=== PATIENT | female | born 1945 | race Caucasian/White ===

== ENCOUNTER 2021-05-09 11:04 | Emergency (ER) | payer MEDICARE, OTHER ==
[2021-05-09 11:53] LABS: BASOPHIL 0.8 % (0-2); EOSINOPHIL 1.8 % (0-7); HCT 41.2 % (37.0-47.0); HGB 13.6 g/dl (12.5-16.0); LYMPHOCYTE 27.3 % (15-48); MCH 31.3 pg (25.0-31.0); MCV 94.9 fL (78.0-100.0); MONOCYTE 7.3 % (0-12); MPV 9.6 fL (6.0-9.5); NEUTROPHIL 62.6 % (41-80); NRBC 0; PLT 204 K/uL (150-400); RBC 4.34 M/uL (4.20-5.40); RDW 12.7 % (11.5-14.0); WBC 6.2 K/uL (4.0-10.5)
[2021-05-09 11:54] LABS: INR 1.05 (0.9-1.2); PROTHROMBIN TIME 13.1 SECONDS (11.8-13.4)
[2021-05-09 11:55] LABS: PTT 29.1 SECONDS (24.4-34.7)
[2021-05-09 12:02] LABS: ALBUMIN 3.7 g/dL (3.4-5.0); BILIRUBIN - TOTAL 0.5 mg/dL (0.2-1.0); BUN/CREAT RATIO (CALC) 16.7 RATIO; CREATININE 0.72 mg/dL (0.51-0.95); GLOBULIN (CALCULATION) 3.4 g/dL; POTASSIUM 4.2 mmol/L (3.5-5.1); TOTAL PROTEIN 7.1 g/dL (6.4-8.2)
[2021-05-09 12:13] LABS: CKMB 1.2 ng/mL (0.0-3.6)
== END 2021-05-09 14:58 | disposition home or self-care (01) ==
LOC: FER 11:04
PROVIDERS: Emergency Medicine
DX: R07.89 Other chest pain (principal); R42 Dizziness and giddiness; I25.2 Old myocardial infarction; Z95.9 Presence of cardiac and vascular implant and graft, unspecified; Z88.8 Allergy status to other drugs, medicaments and biological substances
CPT/HCPCS: 36415; 71046; 80053; 82553; 84484; 85025; 85610; 85730; 93005